=== PATIENT | male | born 1980 | race Caucasian/White ===

== ENCOUNTER 2021-10-27 18:43 | Emergency (ER) | payer BC ==
[2021-10-27] MEDS: Ibuprofen 200 MG Tab PO ONE (19:02)
[2021-10-27] MEDS: Acetaminophen 500 MG Tab PO ONE (19:02)
== END 2021-10-27 19:18 | disposition home or self-care (01) ==
LOC: CC.ED 18:43
DX: M77.02 Medial epicondylitis, left elbow (principal); Z72.0 Tobacco use
CPT/HCPCS: 99283; A9270-GY

== ENCOUNTER 2022-03-16 21:27 | Emergency (ER) | payer MEDICAID ==
[2022-03-16] MEDS ORDERED: Sodium Chloride 0.9% 10 ML Syringe FLUSH PRN (21:38)
[2022-03-16 22:11] LABS: CHLORIDE,CL 97 mEq/L (98-106); SODIUM,NA 138 mEq/L (136-145)
[2022-03-16] MEDS: Albuterol/Ipratropium 3.0-0.5 MG/3 ML Neb Soln NEB ONE (22:13)
[2022-03-16] MEDS: Sodium Chloride 0.9% 1,000 ML IV ONE (22:13)
[2022-03-16 22:28] LABS: ESTIMATED GFR > 60 mL/min (>=60)
[2022-03-16] MEDS: Iopamidol 755 Mg/ML 100 ML Bottle IVPUSH ONE (23:01)
[2022-03-17] MEDS: Sodium Chloride 0.9% 1,000 ML IV SCH (01:04)
[2022-03-17] MEDS: Sodium Chloride 0.9% 1,000 ML ONE (01:04)
[2022-03-17] MEDS: LORazepam 2 MG/ML Syringe IVPUSH ONE (01:07)
== END 2022-03-17 01:25 ==
LOC: CC.ED 21:27
DX: R06.02 Shortness of breath (principal); R79.1 Abnormal coagulation profile; R91.8 Other nonspecific abnormal finding of lung field; R05.9 Cough, unspecified; Z79.899 Other long term (current) drug therapy; Z20.822 Contact with and (suspected) exposure to COVID-19
CPT/HCPCS: 36415; 71046; 71275; 80053; 85025; 85379; 86140; 87804; 94640; 96374; 99284; 99285-25; J2060; J7030; J7620-GY; Q9967; U0002